=== PATIENT | female | born 1990 | race Caucasian/White ===

== ENCOUNTER 2016-05-20 19:47 | Emergency (ER) | payer OTHER ==
[~2016-05-20] VITALS: Ht 180.3 cm; Wt 106.8 kg
[~2016-05-20 19:47] MED LIST: DOCU100C8 PO; FES300 PO; Ibuprofen PO; Oxycodone/Acetaminophen PO; PREN1TAB47 PO
[2016-05-20 19:50] VITALS: BP 138/94; PULSE 88; RESP 18; O2SAT 100
--- NOTE | 2016-05-20 20:11 | ED.REPORT ---
HPI-Chest Pain Under 40 Date of Service May 20, 2016 ED Provider: Sukhdev Diaz MD History of Present Illness: The patient is complaining of palpitations, however no such template exists in this system-so this template was used. Patient is a 26-year-old female with a hx of MS reports to the ED complaining of dizziness for the past three days. She c/o associated mild lightheadedness and SOB. She has never had symptoms like this before and is not currently experiencing any symptoms. Patient was on vacation in [place] last week for a few days. Nursing Notes Stated Complaint: CHEST PAIN Chief Complaint: Dysrhythmia/Cardiac Nursing Notes Reviewed: Yes ([employer] meds not reconciled) Allergies: Coded Allergies: No Known Allergies (Unverified Allergy, Unknown, 09/22/14) Scheduled Ferrous Sulfate-Expunged Drug, Do Not Renew! (Feosol-Expunged Drug, Do Not Renew !) 325 Mg Tablet 325 ( PO DAILY Vit/Fe Fumarate/Fa-Expunged Drug, Do (-Expunged Drug, Do Not Renew!) 1 Tab Tablet 1 TAB PO DAILY Scheduled PRN ([Oxycodone/Acetaminophen]) 1 TAB TABLET 1-2 TAB PO Q4H PRN PRN For Pain ([Ibuprofen]) 600 MG TABLET 600 MG PO Q6H PRN PRN For Pain Docusate Sodium (Docusate Sodium) 100 Mg Capsule 100 MG PO BID PRN PRN For Constipation General Time Seen by MD: 20:04 Chief Complaint Other (dizziness) Hx Obtained From: Patient Arrived By: Walk-in Sudden in Onset?: Yes Onset Occurred: 3 days ago Symptom Duration: Since onset Severity: Current: No pain currently Recent Healthcare: No recent doctor visit, No recent hospitalization Similar Sx Previous: No Past Medical History Past Medical History polycystic ovarian syndrome Past Surgical History Reports: (2) Smoking History Never Smoker Social History Drug Use: Denies drug use Ambulatory Status Independent Review of Systems Respiratory: Reports: Shortness of breath Neurologic: Reports: Dizziness, Lightheaded Complete sys rev & neg: except as marked. Physical Exam Initial Vital Signs Vital Signs (First) Date Time Temp Pulse Resp B/P Pulse Ox O2 Delivery O2 Flow Rate FiO2 05/20/16 19:50 36.3 88 18 138/94 100 05/20/16 22:08 Room Air Initial VS: Reviewed, Vital signs normal Head / Eyes: Atraumatic, Normocephalic, PERRL ENT: Mucous membranes moist, Conjunctiva normal, No scleral icterus Neck: Supple, Non-tender, Full range of motion Abdomen / GI: Soft, Non-tender, No guarding, No rebound, No distention Extremities: Vascular intact, Neuro intact, No swelling, No tenderness Skin: Warm, Dry, No cyanosis Neurologic: Alert, Oriented, Nonfocal Psychiatric: Mood/affect normal, Behavior normal, Normal thought content General/Constitutional: Awake, Alert, No acute distress, Well appearing, Well developed, Well nourished, Cooperative, Not toxic appearing Respiratory / Chest: Atraumatic, Breath sounds NL, Breath sounds = bilat, No respiratory distress, No rales, No rhonchi, No wheezing, No retractions Cardiovascular: Heart rate NL, Regular rhythm, Heart sounds NL, No gallop, No murmurs, No rubs Interpretation & Diagnostics Lab Results Interpretation Result Diagram: 05/20/16203905/20/162039 Test 05/20/16 20:40 White Blood Count 9.7th/mm3 (3.8-10.1) Red Blood Count 4.74mil/mm3 (3.90-5.20) Hemoglobin 13.0g/dL (12.0-15.6) Hematocrit 40.2% (35.0-46.0) Mean Corpuscular Volume 84.8fL (81-100) Mean Corpuscular Hemoglobin 27.4pg (27.0-35.0) Mean Corpuscular Hemoglobin Concent 32.3% (32.0-37.0) Red Cell Distribution Width 13.5% (12.3-15.4) Platelet Count 257bil/L (150-400) Neutrophils (%) (Auto) 68.2% (40-74) Lymphocytes (%) (Auto) 24.0% (14-46) Monocytes (%) (Auto) 5.9% (4-12) Eosinophils (%) (Auto) 1.5% (0-5) Basophils (%) (Auto) 0.3% (0-3) Sodium Level 137mEq/L (134-144) Potassium Level 3.7mEq/L (3.5-5.2) Chloride Level 98mEq/L (97-108) Carbon Dioxide Level 25mmol/L (18-29) Blood Urea Nitrogen 9mg/dL (6-20) Creatinine 0.74mg/dL (0.57-1.00) Estimat Glomerular Filtration Rate 134mL/min (>59) Glucose Level 97mg/dL (60-99) Calcium Level 9.2mg/dL (8.5-10.1) Magnesium Level 1.8mg/dL (1.6-2.6) Total Bilirubin 0.4mg/dL (0.0-1.2) Aspartate Amino Transf (AST/SGOT) 20U/L (0-50) Alanine Aminotransferase (ALT/SGPT) 17U/L (0-32) Alkaline Phosphatase 80U/L (25-150) Total Protein 7.7g/dL (6.4-8.4) Albumin 4.4g/dL (3.4-5.0) Thyroid Stimulating Hormone (TSH) 1.630uIU/mL (0.450-4.500) Human Chorionic Gonadotropin, Qual Negative (Negative) Hold Martin Top Tube Received (Received) Lab Results Interpretation: CBC normal CMP normal TSH normal ECG Interpretation ECG Interpretation: 1 premature ventricular contraction Time: 20:25 Interpreted by: ED physician Normal ECG Interpretation: Normal rate, Normal sinus rhythm Re-Eval/Medical Decision Med Decision/Clinical Course This is a 26-year-old female presents with intermittent palpitations that persist over the past 3 days. She reports an occasional skipped strong beat. She feels slightly lightheaded at times. She has not had chest pain, fevers chills or exertional symptoms. On exam she appears well. She has symptoms while the EKG is obtained, and a premature ventricular contraction is captured. She had occasional symptomatic PVCs on the monitor, no other dysrhythmic events were noted. She denies any stimulant, recreational drug use, etc. Her lab work is normal including normal magnesium, potassium, TSH. All of our workup as demonstrating PVCs as a cause of her symptomatic palpitations. She is reassured. She was discharged in stable condition. Routine precautions reviewed Source of Hx: Old records Re-Evaluation/Progress : Time of Eval: 21:56 Patient Status: Condition improved Re-Evaluation/Progress Note: Pt rechecked. Informed pt of diagnosis of premature ventricular contraction and plan for treatment. Pt understands and agrees with plan. F/U and RTER warnings given. All questions addressed. Differential Diagnosis: Positive: Dysrhythmia (PVC's ), Negative: Acute coronary syndrome, Acute myocardial infarct, Asthma exacerbation, Chest pain, acute, Esophageal rupture, Gun shot wound chest, Myocarditis, Peptic ulcer disease, Pericarditis, Pleurisy, Pneumomediastinum, Pneumonia, Pneumothorax, Pulmonary edema, Pulmonary embolism, Rib fracture, Stab wound chest Counseled Regarding: Diagnosis, Lab results, Need for follow-up, When/why to return to ED Discharge & Departure Primary Impression: Premature ventricular contractions Disposition: Home Discharge Condition All VS Reviewed: Yes Condition: Stable Additional Instructions: 1. Your symptoms are caused by premature ventricular contractions. ("PVC's".) 2. Although annoying in terms of causing symptoms, they are not dangerous-and they usually resolve on their own with time. Occasionally, can be made worse if your electrolytes are off-however your blood tests were entirely normal. 3. Activities as tolerated. 4. These can come and go over time, but again are normal. 5. We generally recommend trying to avoid any medication for this, as they are generally self-limited. 6. Follow up with Dr. Barrios as needed. 7. Return if new or worsening symptoms Referrals: Calderon Mac MD (PCP) Scribe Attestation Portion of this note were transcribed by Shena Ramirez. I, Dr. Diaz, personally performed the history, physical exam, and medical decision-making: I reviewed and confirmed the accuracy for the information in the transcribed note. Signed by: sena Wright, 05/20/16 2200 copies to: Calderon Mac MD, Matthew F MD May 20, 2016 20:11 SHENA RAMIREZ May 20, 2016 20:22
[2016-05-20 20:47] LABS: BASOPHILS % (AUTO) 0.3 % (0-3); EOSINOPHILS % (AUTO) 1.5 % (0-5); MONOCYTES % (AUTO) 5.9 % (4-12); Mean Corpuscular Hemoglobin 27.4 pg (27.0-35.0); Mean Corpuscular Volume 84.8 fL (81-100); NEUTROPHILS % (AUTO) 68.2 % (40-74); Platelet Count 257 bil/L (150-400)
[2016-05-20 21:31] LABS: Magnesium 1.8 mg/dL (1.6-2.6)
[2016-05-20 22:08] VITALS: BP 131/89; PULSE 82; RESP 16; O2SAT 100
== END 2016-05-20 22:09 | disposition home or self-care (01) ==
LOC: SED 19:47
DX: I49.3 Ventricular premature depolarization (principal); Z87.898 Personal history of other specified conditions